=== PATIENT | female | born 1970 | race Caucasian/White ===

== ENCOUNTER → 2016-08-26 | Outpatient (CLI) | payer OTHER ==
--- NOTE | ~2016-08-26 | NM22 ---
[facility] A Service of [facility] & [facility] RADIOLOGY TEXT RESULTS PATIENT: ISRAEL MACIAS LOCATION: [facility] : 72 UNIT #: [id number] AGE: [address]: Dione Schneider MD SEX: F ORDER DR: [id number] [facility]. [place], [place] [address] [id number] O MR#: [id number] Acc #: [id number] NAME: ISRAEL MACIAS : 1970 SEX: F STUDY DATE/TIME: 08/26/2016 9:17 UNIT: [facility] ROOM: STUDY DESCRIPTION: AYSHA Hepatobiliary W GB Pharm Attending Physician: Dione Schneider M.D. Referring Physician: Dione Schneider M.D. Ordering Physician: Dione Schneider M.D. Primary Care Physician: Dione Schneider M.D. MEDICAL IMAGING REPORT This report is preliminary unless electronic signature is present EXAM HIDA scan INDICATIONS Right upper quadrant and epigastric pain and bloating. This has been present off and on for 1 year, but has gotten worse in the last 3-4 weeks. TECHNIQUE Patient was administered 5.36 mCi of technetium 99m Choletec. Sequential images were obtained through the right upper quadrant. Following this patient was administered 1.5 mcg of Kinevac and gallbladder ejection fraction was obtained. FINDINGS Patient has prompt and homogeneous radiotracer uptake seen within the liver. There is a small bowel activity seen on the 15-minute images. Gallbladder is noted on the 45-minute images. Gallbladder ejection fraction was calculated and was found to be 53.8%. IMPRESSION Normal HIDA scan. Dictated by... Lashay Castillo M.D. THIS IS AN ELECTRONICALLY VERIFIED REPORT Lashay Castillo M.D. at 08/26/2016 5:20 PM AFF/to TD: 08/26/2016 12:57 JOB #: [id number] MEDICAL IMAGING REPORT [facility] A Service of [facility] & [facility] RADIOLOGY TEXT RESULTS PATIENT: ISRAEL MACIAS [id number] [birth year] UNIT #: [id number] AGE: [address]: Dione Schneider MD SEX: F ORDER DR: COPY
== END | disposition home or self-care (01) ==
LOC: CNUC 07:37
DX: R10.11 Right upper quadrant pain (principal)
CPT/HCPCS: 78227; A9537; J2805

== ENCOUNTER → 2016-09-29 | Outpatient (CLI) | payer OTHER ==
--- NOTE | ~2016-09-29 | MR113 ---
[facility]. [facility] A Service of [facility] RADIOLOGY TEXT RESULTS PATIENT: ISRAEL MACIAS LOCATION: [facility] : 72 UNIT #: [id number] AGE: [address]: Domenic Fermin MD SEX: F ORDER DR: [id number] [address] [address] [id number] O MR#: [id number] Acc #: [id number] NAME: ISRAEL MACIAS : 1970 SEX: F STUDY DATE/TIME: 09/29/2016 13:39 UNIT: [facility] ROOM: STUDY DESCRIPTION: MR Lumbar Wo Contrast Attending Physician: Domenic Fermin M.D. Referring Physician: Domenic Fermin M.D. Ordering Physician: Domenic Fermin M.D. Primary Care Physician: Dione Schneider M.D. MRI CENTER REPORT This report is preliminary unless electronic signature is present. EXAM Lumbar MRI. HISTORY Chronic back pain over the past 14 years that radiates into both lower extremities TECHNIQUE Multiplanar imaging of the lumbar spine was performed with short and long TR. FINDINGS The T12-L1 disc is degenerated with disc space narrowing. There is a broad-based central disc protrusion with osteophyte that causes moderate canal narrowing. Foraminal narrowing is mild on both sides. In the lumbar spine, the discs show mild degenerative change without significant bulging or herniation. There is degenerative change seen at the posterior facets throughout the lumbar spine generally mild at the upper lumbar levels and moderate at L3-4, L4-5, and L5-S1. This causes only mild central stenosis at these levels. The foramina at all lumbar levels are widely patent. No exiting nerve root compression is seen. The conus is normal. There is no evidence of marrow edema or a paraspinous mass. IMPRESSION 1. Mild lower lumbar central stenosis predominantly from facet hypertrophy and thickening of the ligamentum flava. Lumbar degenerative disc disease is minimal. 2. Moderate central stenosis at T12-L1 from a broad-based central chronic disc protrusion with osteophyte. [facility] A Service of [facility] RADIOLOGY TEXT RESULTS PATIENT: ISRAEL MACIAS LOCATION: [facility] : 72 UNIT #: [id number] AGE: [address]: Doemnic Fermin MD SEX: F ORDER DR: Dictated by... Domenic Cotton M.D. THIS IS AN ELECTRONICALLY VERIFIED REPORT Domenic Cotton M.D. at 09/30/2016 4:28 PM RLF/nelson TD: 09/30/2016 10:21 JOB #: [id number] MRI CENTER REPORT Page 1 of 1
== END | disposition home or self-care (01) ==
LOC: SMRI 13:07
DX: M48.06 Spinal stenosis, lumbar region (principal); M48.05 Spinal stenosis, thoracolumbar region; M51.25 Other intervertebral disc displacement, thoracolumbar region; M51.36 Other intervertebral disc degeneration, lumbar region; M25.78 Osteophyte, vertebrae
CPT/HCPCS: 72148